=== PATIENT | male | born 1960 | race Caucasian/White ===

== ENCOUNTER 2021-02-17 16:59 | Emergency (ER) | payer OTHER ==
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
== END 2021-02-17 17:33 | disposition home or self-care (01) ==
LOC: JP.ED 16:59
DX: S80.11XA Contusion of right lower leg, initial encounter (principal); V29.9XXA Motorcycle rider (driver) (passenger) injured in unspecified traffic accident, initial encounter; Y93.55 Activity, bike riding
CPT/HCPCS: 99283